=== PATIENT | female | born 1980 | race Caucasian/White ===

== ENCOUNTER 2018-03-24 09:20 | Emergency (ER) | payer MEDICAID ==
[2018-03-24] MEDS: LIDOCAINE 1% (MDV) 20 ML INJ SC (10:14)
[2018-03-24] MEDS: CEFTRIAXONE 1 GM INJ IM (10:14)
[2018-03-24] MEDS: HYDROmorphONE 0.5 MG/0.5 ML SYG IM (10:15)
[2018-03-24] MEDS: TRIMETHOPRIM/SULFAMETHOX (DS) TAB PO (11:07)
[2018-03-24] MEDS: IBUPROFEN 600 MG TAB PO (11:07)
== END 2018-03-24 11:26 | disposition home or self-care (01) ==
LOC: FTE 09:20
DX: L02.31 Cutaneous abscess of buttock (principal); F17.210 Nicotine dependence, cigarettes, uncomplicated
CPT/HCPCS: 10060; 96372; 99284-25